=== PATIENT | female | born 1955 | race Caucasian/White ===

== ENCOUNTER → 2023-05-09 10:55 | Outpatient (CLI) | payer BC, SELFPAY ==
--- NOTE | ~2023-05-09 | DEXA_ITS ---
Bone Density Report Name: DAX GUSTAFSON Age: 67 Sex: Female Ethnicity: White Date of : 1955 Indication: postmenopausal; screening for osteoporosis; Referring Provider: FRANCHESKA RIVERO Study: Bone densitometry was performed. Exam Date: May 09, 2023 Accession number: [id number] Bone Density: Region BMD T-score Z-score Classification AP Spine (L1-L4) 1.200 1.4 3.3 Normal Femoral Neck (Left) 0.917 0.6 2.2 Normal Total Hip (Left) 1.076 1.1 2.4 Normal Femoral Neck (Right) 0.862 0.1 1.7 Normal Total Hip (Right) 1.017 0.6 1.9 Normal Total Hip Mean 1.047 0.9 2.2 Normal World Health Organization criteria for BMD impression classify patients as: Normal (T-score at or above -1.0), Osteopenia (T-score between -1.0 and -2.5), or Osteoporosis (T-score at or below -2.5). 10-year Fracture Risk: FRAX not reported because: All T-scores for Spine Total, Hip Total, Femoral Neck at or above -1.0 Previous Exams: Region Exam Age BMD T-score BMD Change BMD Change Date g/cm2 vs Baseline vs Previous AP Spine(L1-L4) 05/09/2023 67 1.200 1.4 0.005 0.021 08/31/2018 63 1.179 1.2 -0.016 -0.059* 06/18/2014 58 1.238 1.7 0.043* 0.043* 03/31/2010 54 1.195 1.3 Total Hip(Left) 05/09/2023 67 1.076 1.1 -0.013 -0.035* 08/31/2018 63 1.111 1.4 0.022 -0.043* 06/18/2014 58 1.154 1.7 0.065* 0.065* 03/31/2010 54 1.089 1.2 Total Hip(Right) 05/09/2023 67 1.017 0.6 -0.054* -0.026 08/31/2018 63 1.043 0.8 -0.028* -0.039* 06/18/2014 58 1.082 1.1 0.011 0.011 03/31/2010 54 1.071 1.1 *Denotes significance at 95% confidence level, LSC for AP Spine = 0.022 g/cm2, LSC for Total Hip = 0.027 g/cm2 Clinical Information Provided by Patient: Has used the following medications: Vitamin D Patient maximum height was 60.5 Menopause Age: 54 No regular weight bearing exercise Drinks caffeinated beverages Onset of menses at age 14 Number of children 2 Impression: The patient has normal bone mass. The BMD for the Total Hip(Left) decreased, changing by -0.035 since the last DXA exam. Discussion: BONE DENSITY IS ABOVE THE MINIMUM DESIRABLE LEVEL AT ALL SKELETAL SITES TESTED. This patient?s bone mineral density is above the minimum desirable level (T-score -1.0 or bet
--- NOTE | ~2023-05-09 | MM_ITS ---
EXAMINATION: MM screening [facility] BI w mckenna HISTORY: Screening mammogram TECHNIQUE: Craniocaudal and mediolateral oblique 3-D tomosynthesis images were obtained and synthetic 2-D images were generated. CAD analysis was submitted and interpreted. COMPARISON: 08/31/2018, 09/17/2017, 08/22/2016 BREAST PARENCHYMAL COMPOSITION: There are scattered areas of fibroglandular density. FINDINGS: Scattered benign-appearing calcifications are present. No suspicious mass, calcification, o r architectural distortion are identified in either breast to suggest malignancy. There has been no s uspicious interval change. IMPRESSION: 1. No mammographic evidence of malignancy. 2. Recommend routine screening mammography in one year. BI-RADS Category 2: Benign finding(s). Reviewed, dictated and finalized at location A. [employer]
== END ==
PROVIDERS: PCP Advanced Practice Midwife; Visit Provider Advanced Practice Midwife
DX: Z12.31 Encounter for screening mammogram for malignant neoplasm of breast (principal); Z78.0 Asymptomatic menopausal state
CPT/HCPCS: 77063; 77067; 77080